=== PATIENT | female | born 1955 | race Caucasian/White ===

== ENCOUNTER 2020-06-19 12:02 | Outpatient (CLI) | payer MEDICARE, BC ==
[2020-06-19] MEDS ORDERED: BACL-19 PO (12:33)
[2020-06-19] MEDS ORDERED: [UNRECOGNIZED DRUG - CODE] TP (12:33)
[2020-06-19] MEDS ORDERED: LOSA50TA14 PO (12:33)
[2020-06-19] MEDS ORDERED: VITA400C43 PO (12:33)
[2020-06-19] MEDS ORDERED: [UNRECOGNIZED DRUG - OTHER] PO (12:33)
[2020-06-19] MEDS ORDERED: LEVO137T3 PO (12:33)
[2020-06-19] MEDS ORDERED: UBID1CAP43 PO (12:33)
[2020-06-19] MEDS ORDERED: CYAN1TAB29 PO (12:33)
[2020-06-19] MEDS ORDERED: IPRA3AMP30 NEB (12:33)
[2020-06-19] MEDS ORDERED: zinc PO (12:33)
[2020-06-19] MEDS ORDERED: FLUO30CR TP (12:33)
[2020-06-19] MEDS ORDERED: HYOS0.1282 PO (12:33)
[2020-06-19] MEDS ORDERED: ACID1TAB PO (12:33)
[2020-06-19] MEDS ORDERED: AMLO-150 PO (12:33)
[2020-06-19] MEDS ORDERED: CHOL10003 PO (12:33)
[2020-06-19] MEDS ORDERED: MOME13HF2 INH (12:33)
[2020-06-19] MEDS ORDERED: BLAC20TA PO (12:33)
[2020-06-19 13:50] LABS: ALANINE AMINOTRANSFERASE 31 U/L (12-78); ALBUMIN 4.2 g/dL (3.4-5.0); ANION GAP 5 mmol/L (5-15); CALCIUM 9.2 mg/dL (8.5-10.1); CHLORIDE 108 mmol/L (98-107); CREATININE 0.63 mg/dL (0.55-1.02)
[2020-06-19 13:52] LABS: ALKALINE PHOSPHATASE 62 U/L (45-117); BILIRUBIN,TOTAL 0.4 mg/dL (0.2-1.0); TOTAL PROTEIN 7.7 g/dL (6.4-8.2)
== END 2020-06-19 23:59 | disposition home or self-care (01) ==
LOC: STAR 12:02
PROVIDERS: ATTEND Internal Medicine
DX: Z01.812 Encounter for preprocedural laboratory examination (principal); Z20.822 Contact with and (suspected) exposure to COVID-19; R59.1 Generalized enlarged lymph nodes; I51.7 Cardiomegaly
CPT/HCPCS: 36415; 80053; 93005; U0003

== ENCOUNTER 2020-06-23 10:36 | Day surgery (SDC) | payer MEDICARE, BC ==
[~2020-06-23] VITALS: Ht 167.6 cm; Wt 91.5 kg
[~2020-06-23 10:36] MED LIST: ACETAMINOPHEN 325 MG TABLET PO PRN; ACID1TAB PO; AMLO-150 PO; BACL-19 PO; BLAC20TA PO; CHOL10003 PO; CYAN1TAB29 PO; EPHEDRINE 50 MG/ML, 1ML IVPush PRN; FENTANYL PF 100 MCG/2ML IV PRN; FLUO30CR TP; HYDROmorphone 1 MG/ML, 1ML INJ IVPush PRN; HYOS0.1282 PO; IPRA3AMP30 NEB; LABETALOL 5MG/ML, 20ML IV PRN; LEVO137T3 PO; LOSA50TA14 PO; MOME13HF2 INH; ONDANSETRON 2MG/ML, 2ML IVPush PRN; OXYcodone 5 MG/5 ML ORAL.SOL UDC PO PRN; PROMETHAZINE 25 MG/ML, 1ML IVPush PRN; UBID1CAP43 PO; VITA400C43 PO; [UNRECOGNIZED DRUG - CODE] TP; [UNRECOGNIZED DRUG - OTHER] PO; hydrALAzine 20 MG/ML, 1ML IV PRN; zinc PO
[2020-06-23] MEDS ORDERED: CHLORHEXIDINE 15 ML UDC PO ONE (11:00)
[2020-06-23] MEDS ORDERED: LACTATED RINGERS 1,000 ML IV SCH (11:00)
[2020-06-23 11:02] VITALS: BP 167/94
[2020-06-23] MEDS ORDERED: PROPOFOL 10 MG/ML, 20ML ONE ×4 (12:30→13:07)
== END 2020-06-23 14:30 | disposition home or self-care (01) ==
LOC: OUT 10:36
PROVIDERS: ATTEND Internal Medicine
DX: R59.9 Enlarged lymph nodes, unspecified (principal); J44.9 Chronic obstructive pulmonary disease, unspecified; E03.9 Hypothyroidism, unspecified; I10 Essential (primary) hypertension; F32.9 Major depressive disorder, single episode, unspecified; Z79.890 Hormone replacement therapy; Z79.899 Other long term (current) drug therapy; Z88.0 Allergy status to penicillin; Z88.5 Allergy status to narcotic agent
CPT/HCPCS: 43242; 88172; 88173; 88177; 88305; J2704; J7120